=== PATIENT | female | born 1980 | race African-American/Black ===

== ENCOUNTER → 2017-04-13 | Outpatient (CLI) | payer OTHER | END | disposition home or self-care (01) | LOC: LAB 12:43 | PROVIDERS: ATTEND Surgery | DX: Z02.1 Encounter for pre-employment examination (principal) | CPT/HCPCS: 36415; 86706; 86735; 86762; 86765; 86787 ==

== ENCOUNTER 2017-07-16 15:10 | Emergency (ER) | payer MEDICAID, OTHER ==
[~2017-07-16] VITALS: Ht 170.2 cm; Wt 81.6 kg
[2017-07-16 15:27] VITALS: BP 115/76
== END 2017-07-16 20:40 | disposition left against medical advice (07) ==
LOC: ER 15:13
DX: R10.31 Right lower quadrant pain (principal); Z53.21 Procedure and treatment not carried out due to patient leaving prior to being seen by health care provider

== ENCOUNTER 2017-08-13 09:31 | Emergency (ER) | payer MEDICAID ==
[~2017-08-13] VITALS: Ht 170.2 cm; Wt 77.1 kg
[2017-08-13 10:32] VITALS: BP 126/85
[2017-08-13] MEDS ORDERED: KETOROLAC TROMETH 60MG/2ML VIAL IM ONE (11:00)
== END 2017-08-13 12:05 | disposition home or self-care (01) ==
LOC: ER 09:31
DX: M54.5 Low back pain (principal); G89.29 Other chronic pain
CPT/HCPCS: 96372; 99283; J1885

== ENCOUNTER 2017-09-24 15:42 | Emergency (ER) | payer MEDICAID, OTHER ==
[~2017-09-24] VITALS: Ht 170.2 cm; Wt 79.4 kg
[2017-09-24 16:21] VITALS: BP 119/73
[2017-09-24] MEDS ORDERED: KETOROLAC TROMETH 60MG/2ML VIAL IM ONE (17:00)
== END 2017-09-24 17:19 | disposition home or self-care (01) ==
LOC: ER 15:42
DX: S80.02XA Contusion of left knee, initial encounter (principal); S80.01XA Contusion of right knee, initial encounter; W01.0XXA Fall on same level from slipping, tripping and stumbling without subsequent striking against object, initial encounter; Y93.01 Activity, walking, marching and hiking; Y92.008 Other place in unspecified non-institutional (private) residence as the place of occurrence of the external cause; Y99.8 Other external cause status
CPT/HCPCS: 73562; 96372; 99284; J1885